=== PATIENT | male | born 1955 | race Caucasian/White ===

== ENCOUNTER → 2016-08-29 | Outpatient (CLI) | payer BC | END | disposition home or self-care (01) | LOC: CFH 16:14 | PROVIDERS: ATTEND Nurse Practitioner Primary Care | DX: M19.011 Primary osteoarthritis, right shoulder (principal); K21.9 Gastro-esophageal reflux disease without esophagitis; Z83.3 Family history of diabetes mellitus ==

== ENCOUNTER → 2018-10-11 | Outpatient (CLI) | payer BC | END | disposition home or self-care (01) | LOC: CFH 10:08 | PROVIDERS: ATTEND Nurse Practitioner Primary Care | DX: M77.32 Calcaneal spur, left foot (principal) | CPT/HCPCS: 36415; 84550 ==